=== PATIENT | male | born 1965 | race Caucasian/White ===

== ENCOUNTER 2021-11-30 13:47 | Emergency (ER) | payer OTHER, SELFPAY ==
[2021-11-30 13:56] VITALS: BP 142/94; PULSE 87; RESP 30; TEMP 36.4; O2SAT 92; BMI 29.8
[2021-11-30] MEDS: IPRAT-ALBUT 0.5-2.5 MG/3 ML NEB 1 NEB IH (14:45)
--- NOTE | 2021-11-30 15:12 | CRLHL7_ITS ---
For Patients: As a result of the Cures Act, medical imaging exams and procedure reports are released immediately into your electronic medical record. You may view this report before your referring provider. If you have questions, please contact your health care provider. INDICATION: COVID+,SOB,COUGH HISTORY: Shortness of breath and cough. Nicci. COMPARISON: None. TECHNIQUE: Chest one-view portable. FINDINGS: Linear interfaces are present at both lung apices. This may be overlying the patient, or potentially a skin fold. Apical pneumothoraces are an additional consideration. Pneumothoraces are not favored. Heart size and pulmonary vasculature are normal. No sizable pleural effusion. No evidence for pulmonary edema. The osseous structures are intact. IMPRESSION: 1. No plain film evidence for viral pneumonia. 2. Linear interfaces at both lung apices, which may be external to the patient, or potentially skin folds. 3. Apical pneumothoraces are considered less likely given vascular markings on both sides of the interfaces. If there is concern regarding a pneumothorax, repeat radiograph during expiration may be obtained. Dictated by Casey Yost MD @ 11/30/2021 3:59:17 PM Dictated by: Casey Yost MD @ 11/30/2021 15:59:26 (Electronically Signed)
--- NOTE | 2021-11-30 15:33 | ED.GENADULT ---
HPI - General Adult General Date Seen: 11/30/21 Chief complaint: Shortness of Breath/Dyspnea Stated complaint: covid+, trouble breathing Time Seen by Provider: 11/30/21 14:47 Source: patient History of Present Illness HPI narrative: Patient is a 56-year-old male who presents with cough and shortness of breath, congestion, related to COVID. He has had a cough for almost 2 weeks, seemed to be getting worse over the past week. Had a positive COVID test 6 days ago. Has not had fevers or chest pain. Has had significant congestion, finds it difficult to lay down because of shortness of breath. Has a history of exercise-induced asthma, otherwise is generally pretty healthy. Is not vaccinated for COVID. Comes in today because shortness of breath has been worsening. Has not had any GI symptoms. No lower extremity swelling or pain. No significant sore throat or headache. Related Data Previous Rx's Medication Instructions Recorded albuterol sulfate 90 mcg/actuation 2 puff INHALATION Q4-6H PRN #6.7 g 11/30/21 aerosol inhaler (Ventolin HFA) codeine 10 mg-guaifenesin 100 mg/5 10 ml PO Q4-6H PRN #120 ml 11/30/21 mL oral liquid (Guaifenesin AC) prednisone 20 mg tablet 20 mg PO BID #10 tab 11/30/21 Allergies Allergy/AdvReac Type Severity Reaction Status Date / Time Penicillins Allergy Verified 11/30/21 13:56 Review of Systems Status of ROS: Reports: 10 or more systems reviewed and unremarkable except as noted in History and below PFSH PFS Social History Smoking Status: Never smoker How often do you have a drink containing alcohol: never AUDIT-C Alcohol total score: 0 Non-prescribed substance use: denies use Exam Narrative: Exam Narrative: Vital signs as noted below. In general, an alert, nontoxic male. Using inhaler during my time in the room. No respiratory distress. Head: Normocephalic, atraumatic. Eyes: Pupils are equal reactive. Extraocular movements are full. Conjunctivae are normal. ENT: Mucous membranes are moist. Throat is normal. Neck: Supple without lymphadenopathy. Heart: Regular rate and rhythm. No murmur or rub. Lungs: Bilateral wheezes, coarse rales. No increased work of breathing. Abdomen: Soft and nontender. No organomegaly. Extremities: Well perfused. No edema. No calf tenderness. Pulses intact. Neurologic: Patient is alert and oriented to person and place. Speech is fluent. Face is symmetric. Moves all extremities equally. Affect: Normal. Skin: Warm and dry. Well perfused. Const: Vital Signs, click to edit/add: Vital Signs - 24 hr 11/30/21 13:56 11/30/21 17:14 Temperature 97.6 F Pulse Rate [Left P ulse Oximeter] 87 83 Respiratory Rate 30 H 20 Blood Pressure [Le ft Upper Arm] 142/94 H 127/89 Pulse Oximetry 92 92 Documenting provider has reviewed patient's vital signs: yes Course Course Hospital Course: Following initial evaluation, patient had a DuoNeb with some improvement in his respiratory status. His O2 sats remain in the low 90s, but respiratory rate is significantly improved. He feels better. A chest x-ray by my review does not show significant infiltrate or evidence of significant COVID pneumonia. Final radiology report is negative. I did do some labs, his LDH, procalcitonin, and lactate are all normal which is somewhat reassuring. CBC is unremarkable. I have reviewed all this with him. We discussed that it is a little hard to know where in his COVID course he is given that he has had a cough for 2 weeks, but positive test was about 6 days ago. It is possible that he will be stable to improving over the next couple of days, but it is also possible that he may deteriorate in terms of his oxygen saturations. They do have a sat monitor at home and I have encouraged them to use that to monitor his course. If his O2 saturations are dropping significantly below 90 consistently, he should come back. He does have fairly significant bronchospasm and I do think treating that with steroids is reasonable. We will also send him home with an albuterol inhaler. He is having a lot of difficulty sleeping due to cough, so I am going to give him some guaifenesin with codeine as well. Discussed that we can certainly help him symptomatically to some degree, but in terms of how his COVID will progress, none of these medications will likely have significant effect, and will just have to see how he does. Vital Signs Vital signs: Initial Vital Signs Temperature 97.6 F 11/30/21 13:56 Temperature Source Temporal Artery Scan 11/30/21 13:56 Pulse Rate 87 11/30/21 13:56 Respiratory Rate 30 H 11/30/21 13:56 Blood Pressure 142/94 H 11/30/21 13:56 Blood Pressure Mean 110 11/30/21 13:56 Blood Pressure Position Sitting 11/30/21 13:56 Pulse Oximetry 92 11/30/21 13:56 Oxygen Delivery Method 11/30/21 13:56 Vital Signs Temperature 97.6 F 11/30/21 13:56 Pulse Rate 87 11/30/21 13:56 Respiratory Rate 30 H 11/30/21 13:56 Blood Pressure 142/94 H 11/30/21 13:56 Pulse Oximetry 92 11/30/21 13:56 Temperature 97.6 F 11/30/21 13:56 Pulse Rate 83 11/30/21 17:14 Respiratory Rate 20 11/30/21 17:14 Blood Pressure 127/89 11/30/21 17:14 Pulse Oximetry 92 11/30/21 17:14 Medical Decision Making Lab Data Labs: Lab Results 11/30/21 11/30/21 11/30/21 Range/Units 15:35 15:35 15:35 WBC 11.14 H (4.50-11.00) K/uL RBC 5.35 (4.30-5.90) m/uL Hgb 15.8 (13.5-17.5) gm/dL Hct 46.8 (37.0-53.0) % MCV 88 (80-100) fL MCH 30 (26-34) pg MCHC 34 (32-36) gm/dL RDW Coeff of Zana 12.7 (11.5-15.5) % Plt Count 392 (140-440) K/uL Neut % (Auto) 64.3 (42.0-72.0) % Lymph % (Auto) 20.6 (20-44) % [place] % (Auto) 7.7 (0.0-11.0) % Eos % (Auto) 6.6 (0.0-7.0) % Baso % (Auto) 0.4 (0.0-3.0) % Neut # (Auto) 7.20 H (1.7-7.0) K/uL Lymph # (Auto) 2.30 (0.90-2.90) K/uL [place] # (Auto) 0.90 (0.00-0.90) K/UL Eos # (Auto) 0.70 H (0.00-0.50) K/uL Baso # (Auto) 0.00 (0.00-0.30) K/uL Abs Immat Gran (auto) 0.05 (0.00-0.30) K/uL Sodium 139 (135-149) mmol/L Potassium 4.0 (3.6-5.1) mmol/L Chloride 103 (96-114) mmol/L Carbon Dioxide 27 (20-32) mmol/L BUN 8 (7-30) mg/dL Creatinine 1.0 (0.5-1.5) mg/dL Estimated Creat Clear 90.53 Estimated GFR 88 ml/min Glucose 100 (60-115) mg/dL Lactate 1.1 (0.5-1.9) mmol/L Calcium 9.4 (8.4-10.6) mg/dL Lactate Dehydrogenase 581 (313-618) U/L C-Reactive Protein (0.5-1.0) mg/dL Procalcitonin 0.06 (<0.50) ng/mL 11/30/21 Range/Units 15:35 WBC (4.50-11.00) K/uL RBC (4.30-5.90) m/uL Hgb (13.5-17.5) gm/dL Hct (37.0-53.0) % MCV (80-100) fL MCH (26-34) pg MCHC (32-36) gm/dL RDW Coeff of Zana (11.5-15.5) % Plt Count (140-440) K/uL Neut % (Auto) (42.0-72.0) % Lymph % (Auto) (20-44) % [place] % (Auto) (0.0-11.0) % Eos % (Auto) (0.0-7.0) % Baso % (Auto) (0.0-3.0) % Neut # (Auto) (1.7-7.0) K/uL Lymph # (Auto) (0.90-2.90) K/uL [place] # (Auto) (0.00-0.90) K/UL Eos # (Auto) (0.00-0.50) K/uL Baso # (Auto) (0.00-0.30) K/uL Abs Immat Gran (auto) (0.00-0.30) K/uL Sodium (135-149) mmol/L Potassium (3.6-5.1) mmol/L Chloride (96-114) mmol/L Carbon Dioxide (20-32) mmol/L BUN (7-30) mg/dL Creatinine (0.5-1.5) mg/dL Estimated Creat Clear Estimated GFR ml/min Glucose (60-115) mg/dL Lactate (0.5-1.9) mmol/L Calcium (8.4-10.6) mg/dL Lactate Dehydrogenase (313-618) U/L C-Reactive Protein 0.6 (0.5-1.0) mg/dL Procalcitonin (<0.50) ng/mL Discharge Plan Discharge Clinical Impression: COVID-19, Acute bronchospasm Patient Disposition: Home, Self-Care Condition: Improved Instructions: COVID-19 (Coronavirus Disease 2019) (ED) Additional Instructions: Medications as prescribed. Monitor O2 saturations if possible at home. If you are running in the 80s, you should return. Prescriptions: New codeine-guaifenesin [Guaifenesin AC] 10-100 mg/5 mL liquid 10 ml PO Q4-6H PRNQty: 120 0RF prednisone 20 mg tablet 20 mg PO BID Qty: 10 0RF albuterol sulfate [Ventolin HFA] 90 mcg/actuation HFA aerosol inhaler 2 puff inhalation Q4-6H PRN (Reason: shortness of breath or wheezing) Qty: 6.7 0RF Follow Up/Referrals: Provider,Not a Local [Primary Care Provider] - Stand Alone Forms: [facility] Info Instructions
[2021-11-30 15:43] LABS: Lactate* 1.1 mmol/L (0.5-1.9)
[2021-11-30 15:44] LABS: Basophils Percent Auto 0.4 % (0.0-3.0); Eosinophils Percent Auto 6.6 % (0.0-7.0); Hematocrit 46.8 % (37.0-53.0); Hemoglobin* 15.8 gm/dL (13.5-17.5); Immature Granulocytes Abs Auto 0.05 K/uL (0.00-0.30); Lymphocytes Percent Auto 20.6 % (20-44); Mean Corpuscular HGB Conc 34 gm/dL (32-36); Mean Corpuscular Hemoglobin 30 pg (26-34); Mean Corpuscular Volume 88 fL (80-100); Monocytes Percent Auto 7.7 % (0.0-11.0); Neutrophils Percent Auto 64.3 % (42.0-72.0); Platelet Count* 392 K/uL (140-440); RDW Coefficient of Variation % 12.7 % (11.5-15.5); Red Blood Count 5.35 m/uL (4.30-5.90); White Blood Count* 11.14 K/uL (4.50-11.00)
[2021-11-30 15:46] LABS: Slide Review Reflex No
[2021-11-30 15:58] LABS: Chloride* 103 mmol/L (96-114); Sodium* 139 mmol/L (135-149)
[2021-11-30 16:01] LABS: Blood Urea Nitrogen* 8 mg/dL (7-30); Calcium* 9.4 mg/dL (8.4-10.6); Carbon Dioxide* 27 mmol/L (20-32); Est. Creatinine Clearance* 90.53; Estimated Glomerular Filt Rate 88 ml/min; Glucose* 100 mg/dL (60-115); Lactate Dehydrogenase* 581 U/L (313-618)
[2021-11-30 16:05] LABS: C Reactive Protein* 0.6 mg/dL (0.5-1.0)
[2021-11-30 16:19] LABS: Procalcitonin* 0.06 ng/mL (<0.50)
[2021-11-30 17:14] VITALS: BP 127/89; PULSE 83; RESP 20; O2SAT 92
== END 2021-11-30 17:29 | disposition home or self-care (01) ==
PROVIDERS: Emergency Provider Emergency Medicine
DX: U07.1 COVID-19 (principal); J98.01 Acute bronchospasm
CPT/HCPCS: 36415; 71045; 80048; 83605; 83615; 84145; 85025; 86140; 94640; 99284

== ENCOUNTER 2021-11-30 21:35 | Inpatient (IN) | payer OTHER, SELFPAY ==
[2021-11-30 22:04] VITALS: BP 135/88; PULSE 89; RESP 20; TEMP 37.1; O2SAT 80; BMI 29.8
--- NOTE | 2021-11-30 22:40 | ED.SOB ---
HPI - SOB/Dyspnea General Chief Complaint: Shortness of Breath/Dyspnea Stated Complaint: Covid+ Oxygen level dropping Time Seen by Provider: 11/30/21 21:55 Source: patient, family, RN notes reviewed and old records reviewed Mode of arrival: ambulatory Limitations: no limitations History of Present Illness HPI Narrative: 56-year-old man presenting to the emergency department after being seen earlier today. Diagnosed with COVID about 5 days ago and had 1st symptoms of cough about 12 days ago. Cough has been escalating. Chest pain generally related to cough. x-ray earlier today was unremarkable. a history of exercise-induced asthma. Was discharged with steroids and codeine containing cough syrup and albuterol. Prior to departure had improved oxygen saturations were in the low 90s. Monitoring oxygen saturations at home in the upper 70s and low 80s. Per discharge instructions was recommended then to return. He has pain across his chest from coughing. No new pain. No fever. was not vaccinated for COVID. Up-to-date otherwise. No history of smoking Related Data Home Medications Medication Instructions Recorded Confirmed pseudoephedrine HCl 120 mg 120 mg PO BID PRN 12/01/21 12/01/21 tablet,extended release (Sudafed 12 Hour) Previous Rx's Medication Instructions Recorded albuterol sulfate 90 mcg/actuation 2 puff inhalation Q4-6H PRN 11/30/21 aerosol inhaler (Ventolin HFA) shortness of breath or wheezing #6.7 grams codeine 10 mg-guaifenesin 100 mg/5 10 ml PO Q4-6H PRN #120 mL 11/30/21 mL oral liquid (Guaifenesin AC) prednisone 20 mg tablet 20 mg PO BID #10 tabs 11/30/21 azithromycin 250 mg tablet 250 mg PO Q24H Bronchitis #6 tabs 12/02/21 Allergies Allergy/AdvReac Type Severity Reaction Status Date / Time Penicillins Allergy Verified 11/30/21 13:56 Review of Systems Status of ROS: Reports: 10 or more systems reviewed and unremarkable except as noted in History and below PFSH PFS Social History Highest level of school completed/degree received: Bachelor's degree Smoking Status: Never smoker How often do you have a drink containing alcohol: 4 or more times a week How many standard drinks containing alcohol do you have on a typical day: 1 or 2 How often do you have six or more drinks on one occasion: Less than monthly AUDIT-C Alcohol total score: 5 Non-prescribed substance use: denies use Caffeine: Yes (few cups of coffee) service: Yes Exam Narrative: Exam Narrative: Is pleasant. Mildly labored in his breathing. Tall stature. Accompanied by supportive attentive and well-informed spouse. Speaking easily. Mildly labored in breathing. Sounds a little congested in nasopharynx. Cranial nerves 2-12 intact. Moving all extremities without difficulty. No peripheral edema. Lungs with diffuse crepitus and some squeaks in the upper lung keller. Good air movement. Breath sounds throughout. No crepitus in the supraclavicular area. Sore to palpation across the chest wall. Abdomen is soft not particularly tender. Presents satting 79-80% on room air On 3 L of oxygen via nasal cannula 92% Const: Vital Signs, click to edit/add: Vital Signs - 24 hr 11/30/21 22:04 11/30/21 23:19 Temperature 98.8 F Pulse Rate [Right Pulse Oximeter] 89 Respiratory Rate 20 18 Blood Pressure [Ri t Upper Arm] 135/88 Pulse Oximetry 80 L 93 Documenting provider has reviewed patient's vital signs: yes Course Course Hospital Course: Patient is a 56-year-old gentleman who developed post COVID bronchospasm necessitating hospitalization and oxygen per nasal cannula. We did treat him with Zithromax prednisone and he made steady improvement. He is now feeling fine with no further major symptoms and is on room air. He will be discharged home on a Z-Richard as directed as well as his prednisone as previously prescribed. He also has albuterol the can use p.r.n.. Consultations Consultation #1: Spoke with our hospitalist anticipating admission ultimately with virtual hospitalist for admission. Vital Signs Vital signs: Initial Vital Signs Temperature 98.8 F 11/30/21 22:04 Temperature Source Temporal Artery Scan 11/30/21 22:04 Pulse Rate 89 11/30/21 22:04 Respiratory Rate 20 11/30/21 22:04 Blood Pressure 135/88 11/30/21 22:04 Blood Pressure Mean 103 11/30/21 22:04 Blood Pressure Position Sitting 11/30/21 22:04 Pulse Oximetry 80 L 11/30/21 22:04 Oxygen Delivery Method 11/30/21 22:04 Vital Signs Temperature 98.8 F 11/30/21 22:04 Pulse Rate 89 11/30/21 22:04 Respiratory Rate 20 11/30/21 22:04 Blood Pressure 135/88 11/30/21 22:04 Pulse Oximetry 80 L 11/30/21 22:04 Oxygen Delivery Method 11/30/21 22:04 Temperature 97.8 F 12/02/21 00:16 Pulse Rate 80 12/02/21 08:00 Respiratory Rate 16 12/02/21 08:00 Blood Pressure 126/77 12/02/21 08:00 Pulse Oximetry 93 12/02/21 08:00 Oxygen Delivery Method 12/02/21 08:00 Oxygen Flow Rate 0.5 12/02/21 04:00 MDM - SOB/Dyspnea MDM Narrative Medical decision making narrative: Will be needing oxygen support and admission. I did review contrasted chest CT-without evidence of pulmonary embolus per Radiology over-read. I do not see actually evidence of overwhelming COVID infiltrates or pneumonia. Radiology appreciating evidence of bronchitis. Medical Records Attestation: I reviewed the patient's medical records. Lab Data Attestation: I reviewed the patient's lab results. Labs: Lab Results 11/30/21 11/30/21 11/30/21 Range/Units 22:55 22:55 22:55 WBC 12.41 H (4.50-11.00) K/uL RBC 5.11 (4.30-5.90) m/uL Hgb 15.2 (13.5-17.5) gm/dL Hct 44.5 (37.0-53.0) % MCV 87 (80-100) fL MCH 30 (26-34) pg MCHC 34 (32-36) gm/dL RDW Coeff of Zana 12.7 (11.5-15.5) % Plt Count 380 (140-440) K/uL Neut % (Auto) 83.4 H (42.0-72.0) % Lymph % (Auto) 9.5 L (20-44) % [place] % (Auto) 3.5 (0.0-11.0) % Eos % (Auto) 3.1 (0.0-7.0) % Baso % (Auto) 0.2 (0.0-3.0) % Neut # (Auto) 10.30 H (1.7-7.0) K/uL Lymph # (Auto) 1.20 (0.90-2.90) K/uL [place] # (Auto) 0.40 (0.00-0.90) K/UL Eos # (Auto) 0.40 (0.00-0.50) K/uL Baso # (Auto) 0.00 (0.00-0.30) K/uL Abs Immat Gran (auto) 0.04 (0.00-0.30) K/uL VBG pH 7.423 (7.32-7.43) VBG pCO2 41 (40-50) mmHG VBG pO2 67.9 H (25-47) mmHG VBG HCO3 27 (21-28) mmol/L Sodium 136 (135-149) mmol/L Potassium 4.6 (3.6-5.1) mmol/L Chloride 103 (96-114) mmol/L Carbon Dioxide 28 (20-32) mmol/L BUN 11 (7-30) mg/dL Creatinine 1.0 (0.5-1.5) mg/dL Estimated Creat Clear 90.53 Estimated GFR 88 ml/min Glucose 129 H (60-115) mg/dL Calcium 9.3 (8.4-10.6) mg/dL Lactate Dehydrogenase 566 (313-618) U/L C-Reactive Protein 0.7 (0.5-1.0) mg/dL Discharge Plan Discharge Clinical Impression: COVID-19, Respiratory failure, Bronchitis Patient Disposition: Admitted As Inpatient Condition: Stable Activity Level: No Restrictions Discharge Diet: Regular
--- NOTE | 2021-11-30 22:48 | W.PC.EDHO ---
Primary Language: Preferred Language: Orientation Status: [x] Alert & Oriented [] Slight Confusion [] Known Dx Dementia Transfers By: [] Assist of 1 [] Assist of 2 [] Lift Description of Symptoms ED Triage Present Problem CC: Shortness of Breath, Low Oxygen Description pt. seen earlier for shortness of breath. was told to come back if o2 sats less than 80's consistently. pt. was 80% on triage. Oxygen Administration Pulse Oximetry 80 Oxygen Delivery Method Room Air
--- NOTE | 2021-11-30 23:03 | CRLHL7_ITS ---
For Patients: As a result of the Century Cures Act, medical imaging exams and procedure reports are released immediately into your electronic medical record. You may view this report before your referring provider. If you have questions, please contact your health care provider. Indication: Hypoxia. Shortness of breath. COVID. Technique: Multiple axial images were obtained from the apices to the diaphragm after administration of 95 mL of Isovue 370 intravenously. This study was performed per the pulmonary embolism protocol. Sagittal and coronal reformatted images were obtained. Please note that all CT scans at this facility use dose modulation, iterative reconstruction, and/or weight-based dosing when appropriate to reduce radiation dose to as low as reasonably achievable. Comparison: Chest x-ray done 11/30/2021. Findings: The lungs are clear of acute infiltrates. There is no pleural effusion. There is no endobronchial lesion. There is thickening of the wall of the bronchi. There is no axillary, mediastinal or hilar adenopathy. There is no pulmonary artery embolism seen. There are degenerative changes in the spine. Impression: No pulmonary artery embolism seen. Thickening of the wall the bronchi consistent with a bronchitis. Please note that all CT scans at this facility use dose modulation, iterative reconstruction, and/or weight-based dosing when appropriate to reduce radiation dose to as low as reasonably achievable. Dictated by Carlos Kay MD @ 12/01/2021 1:56:26 AM (Electronically Signed)
[2021-11-30 23:05] LABS: HCO3 VBG 27 mmol/L (21-28); PCO2 VBG 41 mmHG (40-50); PO2 VBG 67.9 mmHG (25-47); pH VBG 7.423 (7.32-7.43)
[2021-11-30 23:08] LABS: Basophils Percent Auto 0.2 % (0.0-3.0); Eosinophils Percent Auto 3.1 % (0.0-7.0); Hematocrit 44.5 % (37.0-53.0); Hemoglobin* 15.2 gm/dL (13.5-17.5); Immature Granulocytes Abs Auto 0.04 K/uL (0.00-0.30); Lymphocytes Percent Auto 9.5 % (20-44); Mean Corpuscular HGB Conc 34 gm/dL (32-36); Mean Corpuscular Hemoglobin 30 pg (26-34); Mean Corpuscular Volume 87 fL (80-100); Monocytes Percent Auto 3.5 % (0.0-11.0); Neutrophils Percent Auto 83.4 % (42.0-72.0); Platelet Count* 380 K/uL (140-440); RDW Coefficient of Variation % 12.7 % (11.5-15.5); Red Blood Count 5.11 m/uL (4.30-5.90); White Blood Count* 12.41 K/uL (4.50-11.00)
[2021-11-30 23:10] LABS: Slide Review Reflex No
[2021-11-30 23:19] VITALS: RESP 18; O2SAT 93
[2021-11-30 23:20] LABS: Chloride* 103 mmol/L (96-114); Potassium* 4.6 mmol/L (3.6-5.1); Sodium* 136 mmol/L (135-149)
[2021-11-30] MEDS: 0.9 % SODIUM CHLORIDE 500 ML 500 ML IV (23:21)
[2021-11-30 23:23] LABS: Blood Urea Nitrogen* 11 mg/dL (7-30); Carbon Dioxide* 28 mmol/L (20-32); Est. Creatinine Clearance* 90.53; Estimated Glomerular Filt Rate 88 ml/min; Lactate Dehydrogenase* 566 U/L (313-618)
[2021-11-30 23:24] LABS: Calcium* 9.3 mg/dL (8.4-10.6); Glucose* 129 mg/dL (60-115)
[2021-11-30 23:26] LABS: C Reactive Protein* 0.7 mg/dL (0.5-1.0)
[2021-12-01] VITALS (12 sets, daily range): BP systolic 120–146; BP diastolic 68–94; PULSE 71–84; RESP 16–26; TEMP 36.4–37.1; O2SAT 90–94
[2021-12-01 02:01] LABS: SARS Antigen* Negative (Negative)
[2021-12-01] MEDS: IPRAT-ALBUT 0.5-2.5 MG/3 ML NEB 1 NEB IH ×4 (02:20→18:00)
[2021-12-01 03:37] LABS: SARS PCR* Negative SARS-CoV-2 (Negative)
--- NOTE | 2021-12-01 06:37 | P.CCN_ITS ---
Assessment and Plan Assessment and plan (1) Respiratory failure: Status: Acute (2) Acute bronchospasm: Status: Acute (3) COVID-19: Status: Acute Plan [facility] Hospitalist eHospitalist was contacted with request of consultation Srinivasan Manzano is a 56 yo M admitted via the ER for acute hypoxic resp failure related to covid 19 infection. He reports he did a home covid test 6 days ago, had symptoms for 4 days prior to that testing. He reports that the symptoms that he had were cough and shortness of breath. Increased production of his phlegm. Initially did start out with sinus congestion but that part did resolve however he continued to get more coughing and shortness of breath. He did not experience chest pain related to the coughing. He came in because of the difficulty breathing. In the emergency room on his first visit he was instructed to monitor oxygen saturations. When he returned later that day his oxygen saturations were 80% on room air. He had a CT PE study that showed no pulmonary embolism, findings consistent with bronchitis. He does have history of exercise-induced asthma which causes minimal difficulties. Reports some allergies. No smoking or inhaled substances. He was given nebulized treatments, steroids and cough syrup in the emergency department. Notable findings include a white blood cell count of 12. Earlier today was 11. Lungs are described as scattered wheezing and crepitus. Reports he recently had a checkup at [facility] and has no chronic issues. Home Medications: see EMR Pertinent Medical History: Exercise-induced asthma, environmental allergies Pertinent Social History: Works around machinery and equipment. Denies tobacco, smoking or other drugs. Rare alcohol use. Exam (performed via interactive video with assistance of bedside nurse): General: alert, cooperative, no acute distress HEENT: oral mucosa pink and moist without erythema Lungs: Bilateral scattered wheezing and rhonchi more prominent in the lung bases CV: regular rate and rhythm without loud murmur rub or gallop Abd: denies tenderness and does not exhibit signs of pain with palpation done by bedside nurse Neuro: Alert oriented conversant. Assessment and Plan: Acute hypoxic resp failure ? titrate O2 to >92% Bronchitis ? suspect secondary bacterial in setting of recent covid infection. Start azithromycin, steroids, nebs all ordered. + COVID 19 home test: home Ag test was 6 days ago with 4 days symptoms prior, that timeline of 9 days with additional factors of a negative Ag and negative PCR testing here so patient does not require contact precautions based on time and negative testing. Local facility to change if this does not follow agreement with their protocol Dvt ppx: SCD Thank you for including [facility] Hospitalist in the patients care. This service is available for further assistance as requested by your care team by calling [phone].
[2021-12-01] MEDS: AZITHROMYCIN 250 MG TABLET PO (07:01)
--- NOTE | 2021-12-01 07:48 | PC.NURSE ---
Addendum entered by Pinky De Jesus RN 12/01/21 08:17: Meter Reading Clerk agrees with cares and documentation of above sports book writer Original Note: [id number] pt arrived to unit from ED for SOB and possible covid related respiratory failure. Nasal cannula with 3L of O2 to keep saturation between 90-92%. Rhonchi throughout anterior and posterior keller, diminished bases. AxO x3, ambulating independently, slept rest of morning. Home medication stored in med room pt drawer.
--- NOTE | 2021-12-01 08:06 | PM.IMHP1 ---
Hospitalist- H&P: HPI History of Present Illness Time Seen by Provider: 08:07 Date Seen: 12/01/21 Chief complaint: Covid+ Oxygen level dropping Narrative: Srinivasan Manzano is a 56 year old male who tested positive for COVID approximately 6 days ago after developing symptoms approximately 10 days ago. He presented to the emergency room yesterday with hypoxia. He does not appear to be infectious but was started on Zithromax and prednisone overnight. He is requiring 2-3 L of oxygen to maintain his saturation. He has no pre-existing lung issues and is a nonsmoker. Overnight he has done well and is feeling better but still is requiring oxygen. Review of Systems Status of ROS: Reports: 10 or more systems reviewed and unremarkable except as noted in History and below [facility] Social History Smoking Status: Never smoker How often do you have a drink containing alcohol: never AUDIT-C Alcohol total score: 0 Non-prescribed substance use: denies use Meds Home Medications and Allergies Home Medication Comments: None Allergies Allergy/AdvReac Type Severity Reaction Status Date / Time Penicillins Allergy Verified 11/30/21 13:56 Exam Narrative: Exam Narrative: EXAM GENERAL: Patient appears comfortable and well. He is breathing oxygen via nasal cannula 3 L. EYES: No scleral icterus. LYMPH: No supraclavicular or cervical lymphadenopathy. SKIN: Visible skin seen during exam normal or with benign process only. EXT: No dependent lower extremity pedal edema. HEART: Regular rate and rhythm with no murmurs, rubs, or gallops. LUNGS: Clear to auscultation bilaterally with no crackles or wheezes. ABD: Soft, non tender, non distended. PSYCH: Good eye contact, speech is not pressured. Const: Vital Signs, click to edit/add: Vital Signs - 24 hr 11/30/21 22:04 11/30/21 23:19 12/01/21 01:43 Temperature 98.8 F 98.8 F Pulse Rate [Right Pulse Oximeter] 89 84 Respiratory Rate 20 18 18 Blood Pressure [Ri ght Arm] Blood Pressure [Ri ght Upper Arm] 135/88 125/68 Pulse Oximetry 80 L 93 93 12/01/21 04:13 12/01/21 05:06 12/01/21 05:29 Temperature 97.6 F 97.9 F Pulse Rate [Right Pulse Oximeter] 83 80 Respiratory Rate 18 24 24 Blood Pressure [Ri ght Arm] 146/79 H Blood Pressure [Ri ght Upper Arm] 120/68 Pulse Oximetry 93 90 90 12/01/21 06:27 12/01/21 07:00 Temperature 97.7 F Pulse Rate [Right Pulse Oximeter] 80 80 Respiratory Rate 24 24 Blood Pressure [Ri ght Arm] 146/79 H Blood Pressure [Ri ght Upper Arm] Pulse Oximetry 90 Hospitalist - H&P: Result Labs Labs: Short CBC 11/30/21 Range/Units 22:55 WBC 12.41 H (4.50-11.00) K/uL Hgb 15.2 (13.5-17.5) gm/dL Hct 44.5 (37.0-53.0) % Plt Count 380 (140-440) K/uL BMP 11/30/21 22:55 Sodium 136 Potassium 4.6 Chloride 103 Carbon Dioxide 28 BUN 11 Creatinine 1.0 Glucose 129 H Calcium 9.3 Assessment and Plan Assessment and plan (1) Respiratory failure: Problem comment: Patient has no previous lung issues. Status: Acute Assessment and Plan: This time will continue his a Zithromax and steroids well as supplemental oxygen. Will of a respiratory therapy help us decide if patient will require home oxygen. (2) Acute bronchospasm: Status: Acute Assessment and Plan: As above (3) COVID-19: Status: Acute Plan Patient no longer infectious in theory and does not meet any requirements for acute treatment. Will manage as above.
[2021-12-01] MEDS: METHYLPREDNISOLONE SOD SUCC 40 MG/ML IVP (09:13)
--- NOTE | 2021-12-01 18:19 | PC.NURSE ---
Pt pleasant and cooperative. Indep in room and steady on feet. SCD's while in bed and encouraged ambulation in room. LS CTA with diminished at bases this AM which progressed to Ronchi and wheezing with multiple interventions. IV steroid and scheduled nebs. IS and aerobika in room. Pt was able to nap for a few hours today after reporting very little sleep over the past week and woke up feeling better. pt required 3L 02 per NC this AM and fha underwriter has since tapered 02 to 0.5L per NC with sats 91%. RT in to assess pt today. Tolerating regular diet and appetite improving.
[2021-12-02 00:16] VITALS: BP 126/77; PULSE 71; RESP 16; TEMP 36.6; O2SAT 91
[2021-12-02] MEDS: IPRAT-ALBUT 0.5-2.5 MG/3 ML NEB 1 NEB IH ×2 (00:20→06:23)
[2021-12-02 04:00] VITALS: PULSE 59; RESP 16; O2SAT 94
[2021-12-02] MEDS: AZITHROMYCIN 250 MG TABLET PO (06:22)
--- NOTE | 2021-12-02 06:27 | PC.NURSE ---
Shift Note : Pt pleasant and cooperative, VSS, afebrile, LS clear after nebs. Pt states that he slept well and is feeling better. Pt remained on 0.5L supplemental O2 via NC overnight to maintain sats >90%. See eMAR for medication administration.
[2021-12-02 07:00] VITALS: PULSE 80; RESP 16; O2SAT 93
[2021-12-02 08:00] VITALS: BP 126/77; PULSE 80; RESP 16; O2SAT 93
[2021-12-02] MEDS: METHYLPREDNISOLONE SOD SUCC 40 MG/ML IVP (08:52)
--- NOTE | 2021-12-02 09:16 | P.DS_ITS ---
DS: Providers Provider Time Seen by Provider: 09:16 Date Seen: 12/02/21 Date of admission: 12/01/21 00:33 Primary care physician: Not a Local Provider Admitting Clinician: Wilman Sarabia MD Attending Physician on discharge: Wilman Sarabia MD DS: Diagnosis Discharge Diagnosis (1) Respiratory failure: Status: Acute Problem details: Patient has no previous lung issues. (2) Acute bronchospasm: Status: Acute (3) COVID-19: Status: Acute DS: Summary Hospital Course Hospital Course: Patient is a 56-year-old gentleman who developed post COVID bronchospasm necessitating hospitalization and oxygen per nasal cannula. We did treat him with Zithromax prednisone and he made steady improvement. He is now feeling fine with no further major symptoms and is on room air. He will be discharged home on a Z-Bobby as directed as well as his prednisone as previously prescribed. He also has albuterol the can use p.r.n.. Time Spent with Patient Time attestation: Total time spent providing and/or coordinating discharge services: Exam Narrative: Exam Narrative: EXAM GENERAL: Patient appears comfortable and well. EYES: No scleral icterus. LYMPH: No supraclavicular or cervical lymphadenopathy. SKIN: Visible skin seen during exam normal or with benign process only. EXT: No dependent lower extremity pedal edema. HEART: Regular rate and rhythm with no murmurs, rubs, or gallops. LUNGS: Rhonchi noted bilaterally with decreased breath sounds. ABD: Soft, non tender, non distended. PSYCH: Good eye contact, speech is not pressured. Const: Vital Signs, click to edit/add: Vital Signs - 24 hr 12/01/21 12:00 12/01/21 15:01 12/01/21 16:00 Temperature 97.8 F 98.0 F Pulse Rate [Right Pulse Oximeter] 81 79 84 Respiratory Rate Blood Pressure [Ri ght Arm] 134/92 H 139/94 H Pulse Oximetry 90 94 91 12/01/21 20:00 12/01/21 23:00 12/02/21 00:16 Temperature 97.7 F 97.8 F Pulse Rate [Right Pulse Oximeter] 71 71 71 Respiratory Rate 26 H 16 16 Blood Pressure [Ri ght Arm] 124/73 126/77 Pulse Oximetry 93 91 91 12/02/21 04:00 Temperature Pulse Rate [Right Pulse Oximeter] 59 L Respiratory Rate 16 Blood Pressure [Ri ght Arm] Pulse Oximetry 94 Discharge Plan Discharge Disposition: Home, Self-Care Date of Admission: 12/01/21 00:33 Attending Provider on Discharge: Chuy Goodrich Primary Care Provider: Provider,Not a Local Condition: Stable Anticipated Discharge Date/Time: 12/02/21 09:12 Discharge Medications: New azithromycin 250 mg Tablet 250 mg PO Q24H Qty: 6 0RF Taper: Z-BOBBY 500 mg Q24H for 1 Day and 0 Hour 250 mg Q24H for 4 Days and 0 Hour Continued pseudoephedrine HCl [Sudafed 12 Hour] 120 mg tablet extended release 120 mg PO BID PRN0RF codeine-guaifenesin [Guaifenesin AC] 10-100 mg/5 mL liquid 10 ml PO Q4-6H PRNQty: 120 0RF prednisone 20 mg tablet 20 mg PO BID Qty: 10 0RF albuterol sulfate [Ventolin HFA] 90 mcg/actuation HFA aerosol inhaler 2 puff inhalation Q4-6H PRN (Reason: shortness of breath or wheezing) Qty: 6.7 0RF Discharge Orders: Discharge Order (Routine); Ordered 12/02/21 Ordered By: Chuy Goodrich Patient Education: COVID-19 (Coronavirus Disease 2019) (DC) Activity Level: No Restrictions Discharge Diet: Regular Follow Up Appointments: Provider,Not a Local [Primary Care Provider] - Forms: [employer] Info Instructions
--- NOTE | 2021-12-02 11:12 | NUTR.NU ---
pt d/c today. pt ambulated to exit and tolerated well. d/c paperwork reviewed and signed, all questions answered. belongings form reviewed and signed. IVs removed, cath intact.
== END 2021-12-02 10:45 | disposition home or self-care (01) | DRG 189 ==
LOC: ED 22:48 → MEDSURG 12-02 09:15
PROVIDERS: Admitting Provider Family Medicine; Emergency Provider Family Medicine; Visit Provider Family Medicine
DX: J96.01 Acute respiratory failure with hypoxia (principal); U07.1 COVID-19; J45.990 Exercise induced bronchospasm
CPT/HCPCS: 36415; 71260; 80048; 82803; 83615; 85025; 86140; 87426; 87635; 94640; 94761; 99283; 99284; A9270; J2920; J7120; Q9967